=== PATIENT | female | born 1965 | race Caucasian/White ===

== ENCOUNTER 2024-07-20 10:54 | Emergency (ER) | payer OTHER, SELFPAY ==
--- OUTSIDE RECORDS SUMMARY | 2024-07-20 11:14 | XMS_ITS | Clinical Summary ---
Author Organization [facility] [address] Address [address] [place] [address] Phone Care Team Providers Care Production Consultant Name Role Phone Tray Cervantes MD Primary Care Provider [phone] Yaritza Luque MD Unavailable Allergies Active Allergy Reactions Criticality Noted Date Comments Benzonatate Anaphylaxis High Covid-19 (Sars-Cov-2) Vaccine, Ad26 Shortness of breath High 08/23/2021 moderna #2 Egg Hives Medium 06/04/2019 Fluconazole Anaphylaxis,Other (S ee comments) High Blisters in mouth Macadamia Nut Oil Hives Medium 10/06/2017 Other Hives Medium 08/28/2017 Lemon grass Penicillins Hives,Palpitations,R as h Medium Sulfa (Sulfonamide Antibiotics) Anaphylaxis,Hives High Medications psyllium 0.52 gram capsule Take 1 capsule (0.52 g total) by mouth daily Active cranberry 400 mg capsule Take 400 mg by mouth daily. Active ashwagandha root extract,bulk, 2.5 % powder Take 1 capsule by mouth daily Active turmeric root extract 500 mg capsuleIndicati ons:stop 5 days before surgery Take 964 mg by mouth daily. Active naproxen (ANAPROX,ALEVE) 220 mg tabletIndicatio ns:stop 5 days before surgery Take 1 tablet (220 mg total) by mouth daily as needed Rare use for migraines. Active cholecalciferol (VITAMIN D-3) 4,000 unit capsule Take 1 capsule (4,000 Units total) by mouth daily Active UNABLE TO FIND Med Name: mushroom mood support Active thiamine (VITAMIN B1) 100 mg tablet Take 100 mg by mouth daily Active magnesium citrate 100 mg tablet Take 4 tablets by mouth daily Active UNABLE TO FIND Take 1 Dose by mouth 3 (three) times a week Med Name: Probiotic for women, 60 Billion CFU from [employer]. Active cetirizine (ZyrTEC) 10 mg tablet Take 10 mg by mouth daily Active Active Problems Problem Noted Date Diagnosed Date Grade IV hemorrhoids 03/25/2018 Overview (03/25/2018): Added automatically from request for surgery [id number] Assessment & Plan (03/25/2018 4:21 PM COOK MORNING): The procedure of hemorrhoidectomy was discussed at length with the patient along with the post operative period including typical pain and activity to which patient agrees. Seborrheic keratoses 03/05/2018 Overview (03/05/2018): Small 0.5 cm flesh colored plaque, right distal dorsal forearm, probably seborrheic keratosis. Assessment & Plan (03/21/2018 3:25 PM COOK MORNING): She noticed a small plaque on the right dorsal forearm recently. It may have been there for longer than the several days that she noticed it. It is not irritated. It looks like a probable seborrheic keratosis. She is worried about some related conditions, and it could be an early basal cell cancer. We will have her come back in a month for another look. She did not want referral to Dermatology or general surgery for flat excision at this time. Heartburn 08/17/2016 Overview (08/28/2017): Intermittent heart burn depending on what she eats, responds to Papaya pills. Assessment & Plan (03/05/2018 5:13 PM COOK MORNING): Heartburn symptoms are well controlled as long as she avoids certain foods. Continue to monitor. Assessment & Plan (08/28/2017 1:45 PM CDT): As she has approached 51 years of age, she has had more problems with dyspepsia. Certain foods bother her more than others. She gets a little heartburn. Papaya pills seem to help. She also takes an occasional Tums. She has no trouble swallowing. We talked about the types of foods that can make acid reflux worse. Her weight may be a factor. She should not eat within 2 hr of bedtime. We will monitor the situation and try medication as needed, but she prefers to control things with her supplements for now. Other fatigue 08/17/2012 Overview (08/28/2017): Patient suspects it is stress related. Assessment & Plan (12/11/2019 4:26 PM CDT): Energy level seems good. Labs checked a couple of years ago were all unremarkable. Continue to monitor. Assessment & Plan (08/28/2017 1:48 PM CDT): For the past five or six years, she has had a lot of fatigue. She thinks it is related to stress on the job. 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 She has a health monitor, and we went over her sleep habits. She gets five or 6 hr of sleep a night, sometimes more. The distribution of REM sleep and other phases seems fairly good. However, she wakes up feeling unrested. She only scores three on the Riley Sleepiness Scale. We will check some labs to exclude nutritional deficiency and anemia. Otherwise I think treating her fatigue is probably a matter of getting a little more sleep, losing some weight, and eating right. Snores 08/17/2012 Assessment & Plan (08/28/2017 1:48 PM CDT): Her says she snores, but she only scores three on the Riley Sleepiness Scale. The sleep study is probably not warranted at this time. Continue to monitor. Perennial allergic rhinitis 08/17/2009 Overview (12/06/2019): Takes Zyrtec every day. Obesity (BMI 30-39.9) 08/18/2007 Assessment & Plan (12/06/2019 3:42 PM CDT): She is actually under the obese threshold at this point. She has been working on gradual weight loss and has made some progress. Continue efforts. Assessment & Plan (08/28/2017 1:46 PM CDT): She is somewhat obese and realizes she has to lose some weight. We went over basal energy expenditure, allocation of calories, and other factors. We will check some baseline labs for possible metabolic effects of obesity. We will see her back in six months and hopefully see an improvement. Other hemorrhoids 02/18/2000 Overview (03/05/2018): Since of her son. Assessment & Plan (03/05/2018 5:14 PM COOK MORNING): She has had hemorrhoids for nearly 20 years that intermittently prolapse and intermittently bleed. They cause her a moderate amount of discomfort. She had a recent normal colonoscopy. We will refer to General surgery for banding or other treatment of the hemorrhoids. Resolved Problems Problem Noted Date Diagnosed Date Resolved Date Gross hematuria 01/26/2018 12/05/2019 Overview (12/05/2019): Gross hematuria with dysuria, possibly UTI, patient recovered with cranberry supplement. Follow up urinalysis negative for blood or other finding. Assessment & Plan (03/05/2018 5:16 PM COOK MORNING): About six weeks ago, she developed dysuria and gross hematuria. She presumed it was a urine infection so she started taking large doses of cranberry capsules. After a week, symptoms resolved and have not recurred. However, in view of the presence of hematuria, we will check a follow-up urinalysis and proceed accordingly. Encounter for screening colonoscopy 08/29/2017 03/05/2018 Overview (08/29/2017): Added automatically from request for surgery [id number] Immunizations Immunization Administration Dates Next Due Tdap 08/18/2012 Surgical History Surgery Date Site/Laterality Comments DIAGNOSTIC LAPAROSCOPY 02/17/1987 - 02/17/1988 pelvic pain WISDOM TOOTH EXTRACTION 02/17/1986 - 02/16/1987 ENDOMETRIAL ABLATION W/ NOVASURE 02/18/2012 - 02/16/2013 TUBAL LIGATION 02/18/2012 - 02/16/2013 COLONOSCOPY 10/06/2017 Normal, Dr. Guerra, [facility]. FRACTURE SURGERY 02/17/1979 - 02/17/1980 Left fractured arm x 3 [facility] MAMMOGRAPHY 07/30/2019 Bilateral Negative, [facility] PAP SMEAR WITH HPV 06/09/2020 Normal, Amy Matute, [facility]. MAMMOGRAPHY 08/08/2020 Bilateral Negative, [facility]. Medical History Medical History Date Comments Depression Mitral valve prolapse As of las t doctor appointment no evidence of Mitral Valve Prolapse. Dr. Elda Loera Abnormal Pap smear of cervix his tory of intermittently abnormal pap smears; normal biopsies History of genital warts 1988 cryothe rapy; improved 04/14/18 Arm fracture 1979 PONV (postoperative nausea a nd vomiting) Encounter for screening colonoscopy 08/29/2017 Added automatically from request for surgery [id number] Gross hematuria 01/26/2018 Gross hematuria with dysuria, possibly UTI, patient recovered with cranberry supplement. Follow up urinalysis negative for blood or other finding. Chicken pox Non morbid obesity 08/18/2007 Family History Medical History Relation Name Comments Heart attack Father Skin cancer Maternal Grandfather Heart attack Maternal Grandmother Heart disease Maternal Grandmother Stroke Maternal Grandmother Depression Mother Mitral valve prolapse Mother Rheum arthritis Mother Alzheimer's disease Paternal Grandfather Cancer Paternal Grandfather Lung cancer Paternal Grandfather Stroke Paternal Grandmother Diabetes Paternal Great-Grandmother Relation Name Status Comments Father Alive Maternal Grandfather Maternal Grandmother Mother Alive Paternal Grandfather Paternal Grandmother Paternal Great-Grandmother Social History Tobacco Use Types Packs/Day Years Used Date Smoking Tobacco: Former Cigarettes 2 - 2001 Smokeless Tobacco: Never Tobacco Cessation:Counseling Given: Not Answered Comments:Smoking History Packs/day: 2 Packs Alcohol Use Standard Drinks/Week Comments Yes 0 (1 standard drink = 0.6 oz pur e alcohol) socially PHQ-2 Answer Date Recorded PHQ-2 Total Score (If total score is 3 or more points, staff should administer the PHQ-9) 0 12/06/2019 Comments No Sex and Gender Information Value Date Recorded Sex Assigned at Not on file Legal Sex Female 4:23 PM COOK MORNING Gender Identity Not on file Sexual Orientation Not on file Occupation Industry Job Start Date Job End Date Not on file Not on file Not on file Not on file Obstetrics History Para Term AB IAB SAB Ectopic Multiple Livin g Live Births 3 2 2 0 1 1 0 0 0 2 2 Date Outcome GA Total Labor Labor/2nd/3rd Weight Sex Type Anes PTL Anika A1 A5 Name Clin Term Term IAB Last Filed Vital Signs Vital Sign Reading Time Taken Comments Blood Pressure 122/80 09/05/2023 3:20 PM CDT Pulse 73 12/06/2019 2:52 PM CDT Temperature 36.3 C (97.3 F) 12/06/2019 2:52 PM CDT Respiratory Rate 16 12/06/2019 2:52 PM CDT Oxygen Saturation 97% 12/06/2019 2:52 PM CDT Inhaled Oxygen Concentration - - Weight 98 kg (216 lb) 09/05/2023 3:20 PM CDT Height 175.3 cm (5' 9) 09/05/2023 3:20 PM CDT Body Mass Index 31.9 09/05/2023 3:20 PM CDT Plan of Treatment Health Maintenance Due Date Last Done Comments Hepatitis C Screening 1965 Hepatitis B Screening 1984 Zoster Vaccine (1 of 2) 2016 Depression Screening 12/05/2020 12/06/2019, 08/29/19 Cervical Cancer Screening 06/09/20212020, 05/22/2016, 12/24/2012 DTaP/Tdap/Td Vaccine (2 - Td or Tdap) 08/18/2022 08/18/2012 Covid-19 Vaccine ( season) 2023 02/11/2021, 01/14/2021 Regular Well Visit/Exam 18-64 09/04/2024 09/05/2023, 08/30/2022, 08/23/2021, Additional history exists Influenza Vaccine (Season Ended) 2024 Breast Cancer Screening-Mammogram 03/12/2025 03/12/2024, 01/24/2023, 01/03/2022, Additional history exists Colon Cancer Screening-Colonoscopy 10/07/2027 10/06/2017 Colon Cancer Screening-CT Colonography Discontinued 10/06/2017 Colon Cancer Screening-DNA Stool Discontinued 10/06/2017 Colon Cancer Screening-FIT Discontinued 10/06/2017 Colon Cancer Screening-Sigmoidoscopy Discontinued 10/06/2017 Pneumococcal vaccine <65 Aged Out No longer eligible based on patient's age to complete this topic Procedures Procedure Name Priority Date/Time Associated Diagnosis Comments SCREENING MAMMOGRAM BILATERAL W ANDREI Schedule Routine, Read Routine (OP Routine) 03/12/2024 4:03 PM COOK MORNING Encounter for screening mammogram for breast cancer PAP WITH REFLEX TO HIGH RISK HPV Routine 06/09/2020 11:08 AM CDT COLONOSCOPY 10/06/2017 11:23 AM CDT from Last 3 Months or Most Recently Relevant to Health Maintenance Results * Screening Mammogram Bilateral W Andrei (03/12/2024 4:03 PM COOK MORNING) Anatomical Region Laterality Modality Breast Bilateral Mammography 03/12/2024 4:12 PM COOK MORNING Impressions 03/12/2024 4:12 PM COOK MORNING There is no mammographic evidence of malignancy. A 1 year screening mammogram is recommended. BI-RADS: 1 - Negative. The patient has been or will be contacted. The patient will be entered into a reminder system with a target due date of 1 year for her next mammogram. Electronically signed by: Naomy Womack M.D. Narrative 03/12/2024 4:12 PM COOK MORNING EXAMINATION: SCREENING MAMMOGRAM BILATERAL W ANDREI ORDERING HEALTHCARE PROVIDER: YARITZA LUQUE HISTORY: Routine screening mammography. COMPARISON: 01/24/2023, 01/03/2022, 08/08/2020, 07/30/2019 TECHNIQUE: CC and MLO views of the bilateral breasts were obtained with digital technique using breast tomosynthesis with C view. Computer aided detection was utilized. FINDINGS: DENSITY: There are scattered areas of fibroglandular density. BREASTS: There are no suspicious masses, suspicious calcifications, or other suspicious findings in either breast. There has been no suspicious interval change. Yaritza Luque MD IMG MAMMO PROCEDURES Final Result * Pap with reflex to High Risk HPV (06/09/2020 11:08 AM CDT) Pap test 06/09/2020 11:0 8 AM CDT 06/09/2020 11:08 AM CDT Narrative 06/15/2020 1:22 PM CDT [facility] Department of Pathology [address] [place], [place] [id number] Final Report with Addendum Patient Name: CHRIS CHANDLER Address: [address] [place] [address] Gender: F : 1965 (Age: 54) Service: Laboratory Location: Lab Hospital #: [id number] Patient Type: Ref Lab Taken: 06/09/2020 Received: 06/09/2020 Accessioned:: 06/12/2020 Reported: 06/15/2020 Physician(s): KORI Sharpe WHNP Diagnosis: Source of Specimen: Imaged Thinprep Pap Test plus HPV - Server Service Assistant Cytologic Material Specimen Adequacy: - Satisfactory for evaluation; endocervical/transformation zone component present General Category: - Negative for intraepithelial lesion or malignancy Interpretation/Results: - Reactive/reparative cell changes CIPRIANO Lutz(ASCP) Norma Jones M.D. Report Electronically Reviewed and Signed Out By Norma Jones M.D. 06/15/2020 13:22:04 Addenda: HPV Test Interpretation NEGATIVE for types 16, 18, 31, 33, 35, 39, 45, 51, 52, 56, 58, 59, 66 and 68. Test performed utilizing Gen-Probe Aptima assay. CIPRIANO Guerrero(ASCP) Report Electronically Reviewed and Signed Out By KIMMY GuerreroASCP) 06/12/2020 14:07:57 Specimen(s) Received: A: Imaged Thinprep Pap Test plus HPV - Server Service Assistant Cytologic Material Clinical History: Menstrual History: Ablation Previous Negative Pap: 2019 The Pap test is a screening test used to aid in the detection of cervical cancer and its precursors. It should not be the sole means by which malignant and premalignant lesions are diagnosed. Both false negative and false positive results may occur. It also has poor sensitivity for the detection of endometrial lesions and should not be used to evaluate suspected endometrial abnormalities. For these reasons it is most important to obtain Pap tests at regular intervals. The performance characteristics of some immunohistochemical stains, fluorescence in-situ hybridization tests and immunophenotyping by flow cytometry cited in this report (if any) were determined by the Surgical Pathology Department at [facility] as part of an ongoing automotive quality manager program and in compliance with federally mandated regulations drawn from the Clinical Laboratory Improvement Act of 1988 (CLIA '88). Some of these tests rely on the use of analyte specific reagents and are subject to specific labeling requirements by the US Food and Drug Administration. Such diagnostic tests may only be performed in a facility that is certified by the Department of Health and Human Services as a high complexity laboratory under CLIA '88. The FDA has determined that such clearance or approval is not necessary. This test is used for clinical purposes. It should not be regarded as investigational or for research. Nevertheless, federal rules concerning the medical use of analyte specific reagents require that the following disclaimer be attached to the report: This test was developed and its performance characteristics determined by the Surgical Pathology Department [facility]. It has not been cleared or approved by the U. S. Food and Drug Administration. Amy Matute NP LAB CYTOLOGY ORDERABLES F inal Result * COLONOSCOPY (10/06/2017 11:23 AM CDT) Anatomical Region Laterality Modality Other Narrative Procedure Note Karthik Guerra MD - 10/06/2017 11:23 AM CDT [facility] Patient Name: Chris Chandler Procedure Date: 10/06/2017 11:23 AM Date of : 1965 Admit Type: Outpatient Age: 51 Gender: Female Attending MD: Karthik Guerra M.D. Room: [facility] Note Status: Finalized Procedure: Colonoscopy Indications: This is the patient's first colonoscopy, Screeningfor colorectal malignant neoplasm Referring MD: Tray Cervantes MD Providers: Karthik Guerra M.D. Impression: - The entire examined colon is normal. - No specimens collected. Recommendation: - Discharge patient to home. - Resume previous diet. - Continue present medications. - Repeat colonoscopy in 10 years for screeningpurposes. - Return to primary care physician as previously scheduled. Medicines: Propofol per Anesthesia Complications: No immediate complications. Estimated Blood Loss: Estimated blood loss: none. Procedure: The benefits, risks and alternatives of theprocedure and sedation were discussed and informed consent was obtained. All questions were answered. Please referto the signed informed consent document in the medical record. The scope was passed under direct vision.The Colonoscope [id number] was introducedthrough the anus and advanced to the the cecum, identifiedby appendiceal orifice and ileocecal valve. The colonoscopy was performed without difficulty. The patient tolerated the procedure well. The quality of the bowel preparation was good. Findings: The perianal and digital rectal examinations were normal. The colon (entire examined portion) appeared normal. Electronically signed by Karthik Guerra M.D. Karthik Guerra M.D. 10/06/2017 11:48:48 AM Number of Addenda: 0 Note Initiated On: 10/06/2017 11:23 AM Procedure Code(s): --- Professional --- G0121, Colorectal cancer screening; colonoscopy on individual not meeting criteria for high risk Diagnosis Code(s): --- Professional --- Z12.11, Encounter for screening for malignant neoplasm of colon CPT copyright 2017 [employer]. All rights reserved. The codes documented in this report are preliminary and upon library clerical assistant reviewmay be revised to meet current compliance requirements. Recognized by the [employer] for promoting quality in endoscopy Karthik Guerra MD ENDOSCOPY PROCEDURES Final Re sult from Last 3 Months or Most Recently Relevant to Health Maintenance Insurance [facility] CHOICE PLUS [facility] HMO/PPO Address: [facility] [address] [place] [address] [facility]LY [facility] OPEN ACCESS Advance Directives For more information, please contact: [phone] * Full Code (Latest Code Status on File) Date Activated Date Inactivated Comments 10/06/2017 9:52 AM 10/06/2017 2:57 PM Care Teams Production Consultant Relationship Specialty Start Date End Date Tray Cervantes MD [address] [place] [address] PCP - General Infectious Diseases 08/29/17 Yaritza Luque MD [address] [place] [address] Evaluation Specialist Obstetrics and Gynecology 08/30/22
--- OUTSIDE RECORDS SUMMARY | 2024-07-20 11:14 | XMS_ITS | Encounter Summary ---
Author Organization [facility] Address [address] [place] [address] Phone Care Team Providers Care Promotor Group Ticket Sales Name Role Phone No, Physician Primary Care Provider [phone] Tray Cervantes MD Primary Care Provider [phone] Meera Crawford MD Unavailable [phone] Encounter Details Date Type Department Care Team (Late st Contact Info) Description 05/23/2017 Orders Only [facility] ProviderJai MD [address] [place] [address] Social History Tobacco Use Types Packs/Day Years Used Date Smoking Tobacco: Former Cigarettes 2 10 1 990 - 2000 Smokeless Tobacco: Never Comments:Smoking History Pac ks/day: 2 Packs Alcohol Use Standard Drinks/Week Comments Yes 0 (1 standard drink = 0.6 oz pur e alcohol) Comments No Sex and Gender Information Value Date Recorded Sex Assigned at Not on file Legal Sex Female 4:23 PM INVOICE CHECKER Gender Identity Not on file Sexual Orientation Not on file 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 us Historical Provider LAB CYTOLOGY ORDERABLES F inal Result documented in this encounter Visit Diagnoses Not on filedocumented in this encounter Care Teams Promotor Group Ticket Sales Relationship Specialty Start Date End Date No, Physician PCP - General 05/23/17 08/28/17 Tray Cervantes MD [address] [id number] PCP - General Infectious Diseases 08/29/17 Meera Crawford MD [address] [address] Correctional Probation Officer Obstetrics and Gynecology 08/30/22 documented as of this encounter
--- OUTSIDE RECORDS SUMMARY | 2024-07-20 11:14 | XMS_ITS | Clinical Summary ---
Author Organization [facility] Address [address] Kim: Epic Prelude ADT [place] [address] Care Team Providers Care Joist Setter Name Role Phone Unavailable Primary Care Provider Unavailabl e Social History Tobacco Use Types Packs/Day Years Used Date Smoking Tobacco: Never Assessed Comments Unknown Sex and Gender Information Value Date Recorded Sex Assigned at Not on file Legal Sex Female 3:37 AM TOOL ADJUSTER Gender Identity Not on file Sexual Orientation Not on file Plan of Treatment Health Maintenance Due Date Last Done Comments DTAP/TDAP/TD VACCINES (1 - Tdap) 1985 HEPATITIS B VACCINES (1 of 3 - 19+ 3-dose series) 12/18 HPV/Cotest (21-29) 12/28/1987 CERVICAL CANCER SCREENING 1996 HPV/Cotest (30-65) 1996 PAP SMEAR 1996 BREAST CANCER SCREENING 2006 COLORECTAL SCREENING 12/28/2011 Colorectal Cancer Screening 12/28/2011 FIT-DNA Q 3 years 12/28/2011 FIT/FOBT Q 1 year 12/28/2011 Flex Sig/CT Colonography Q 5 years 12/28/2011 ZOSTER VACCINE (1 of 2) 2016 INFLUENZA VACCINE (#1) 2023
--- OUTSIDE RECORDS SUMMARY | 2024-07-20 11:14 | XMS_ITS | Encounter Summary ---
Author Organization [facility] Address [address] Kim: [place] [address] Care Team Providers Care Train Control Electronic Technician Name Role Phone Unavailable Primary Care Provider Unavailabl e Encounter Details Date Type Department Care Team (Late st Contact Info) Description 11/12/1988 Outpatient Historical Antoni Sparks MD [address] [place] [id number] Social History Tobacco Use Types Packs/Day Years Used Date Smoking Tobacco: Never Assessed Comments Unknown Sex and Gender Information Value Date Recorded Sex Assigned at Not on file Legal Sex Female 3:37 AM STUFFER Gender Identity Not on file Sexual Orientation Not on file documented as of this encounter Plan of Treatment Not on file documented as of this encounter Visit Diagnoses Not on filedocumented in this encounter
--- OUTSIDE RECORDS SUMMARY | 2024-07-20 11:14 | XMS_ITS | Referral Summary ---
Author Organization [facility] [address] Address [address] [place] [address] Phone Care Team Providers Care Biofuels Operations Manager Name Role Phone Tray Cervantes MD Primary Care Provider [phone] Yaritza Luque MD Unavailable Allergies Active Allergy [...] (03/25/2018): Added automatically from request for surgery [id number] Assessment & Plan (03/25/2018 4:21 PM RN ADMISSION): The procedure of hemorrhoidectomy was discussed at length with the patient along with the post operative period including typical pain and activity to which patient agrees. Seborrheic keratoses 03/05/2018 Overview (03/05/2018): Small 0.5 cm flesh colored plaque, right distal dorsal forearm, probably seborrheic keratosis. Assessment & Plan (03/21/2018 3:25 PM RN ADMISSION): She noticed a small plaque on the [...] pills. Assessment & Plan (03/05/2018 5:13 PM RN ADMISSION): Heartburn symptoms are well controlled as long [...] unrested. She only scores three on the [place] Sleepiness Scale. We will check some labs to exclude nutritional deficiency and anemia. Otherwise I think treating her fatigue is probably a matter of getting a little more sleep, losing some weight, and eating right. Snores 08/17/2012 Assessment & Plan (08/28/2017 1:48 PM CDT): Her says she snores, but she only scores three on the [place] Sleepiness Scale. The sleep study is probably [...] son. Assessment & Plan (03/05/2018 5:14 PM RN ADMISSION): She has had hemorrhoids for nearly 20 [...] finding. Assessment & Plan (03/05/2018 5:16 PM RN ADMISSION): About six weeks ago, she developed dysuria [...] (08/29/2017): Added automatically from request for surgery [id number] Immunizations Immunization Administration Dates Next Due Tdap 08/18/2012 Social History Tobacco Use Types Packs/Day Years Used Date Smoking Tobacco: Former Cigarettes 2 10 1 992 - 2002 Smokeless Tobacco: Never Tobacco Cessation:Counseling Given: Not [...] on file Legal Sex Female 4:23 PM RN ADMISSION Gender Identity Not on file Sexual Orientation Not on file Occupation Industry Job Start Date Job End Date Not on file Not on file Not on file Not on file Last Filed Vital Signs Vital Sign Reading [...] 09/05/2023 3:20 PM CDT Plan of Treatment Not on file Procedures Procedure Name Priority Date/Time Associated Diagnosis Comments SCREENING MAMMOGRAM BILATERAL W ANDREI Schedule Routine, Read Routine (OP Routine) 03/12/2024 4:03 PM RN ADMISSION Encounter for screening mammogram for breast cancer PAP WITH REFLEX TO HIGH RISK HPV Routine 06/09/2020 11:08 AM CDT COLONOSCOPY 10/06/2017 11:23 AM CDT from Last 3 Months or Most Recently Relevant to Health Maintenance Results * Screening Mammogram Bilateral W Andrei (03/12/2024 4:03 PM RN ADMISSION) Anatomical Region Laterality Modality Breast Bilateral Mammography 03/12/2024 4:12 PM RN ADMISSION Impressions 03/12/2024 4:12 PM RN ADMISSION There is no mammographic evidence of malignancy. A 1 year screening mammogram is recommended. BI-RADS: 1 - Negative. The patient has been or will be contacted. The patient will be entered into a reminder system with a target due date of 1 year for her next mammogram. Electronically signed by: Naomy Womack M.D. Narrative 03/12/2024 4:12 PM RN ADMISSION EXAMINATION: SCREENING MAMMOGRAM BILATERAL W ANDREI ORDERING [...] There has been no suspicious interval change. us Yaritza Luque MD IMG MAMMO PROCEDURES Final Result * Pap with reflex to High Risk HPV (06/09/2020 11:08 AM CDT) Pap test 06/09/2020 11:0 8 AM CDT 06/09/2020 11:08 AM CDT Narrative 06/15/2020 1:22 PM CDT [facility] Department of Pathology [address] [place], [place] [id number] Final Report with Addendum Patient Name: CHRIS CHANDLER Address: [facility] [address], [place] [address] Gender: F : 1965 (Age: 54) Service: Laboratory Location: Lab [facility] #: [id number] Patient Type: Ref Lab Taken: 06/09/2020 Received: 06/09/2020 Accessioned:: 06/12/2020 Reported: 06/15/2020 Physician(s): KORI Sharpe WHNP Diagnosis: Source of Specimen: Imaged Thinprep Pap Test plus HPV - Firer Retort Cytologic Material Specimen Adequacy: - Satisfactory for [...] Test performed utilizing Gen-Probe Aptima assay. CIPRIANO Guerrero(ASC) Report Electronically Reviewed and Signed Out By KIMMY GuerreroASC) 06/12/2020 14:07:57 Specimen(s) Received: A: Imaged Thinprep Pap Test plus HPV - Firer Retort Cytologic Material Clinical History: Menstrual History: Ablation [...] determined by the Surgical Pathology Department at [facility] as part of an ongoing quality improvement manager program and in compliance with federally [...] characteristics determined by the Surgical Pathology Department [facility]. It has not been cleared or approved by the U. S. Food and Drug Administration. us Amy Matute [employer] LAB CYTOLOGY ORDERABLES F inal Result * COLONOSCOPY (10/06/2017 11:23 AM CDT) Anatomical Region Laterality Modality Other Narrative Procedure Note Karthik Guerra MD - 10/06/2017 11:23 AM CDT [facility] Patient Name: Chris Chandler Procedure Date: 10/06/2017 11:23 AM Date of : 1965 Admit Type: Outpatient Age: 51 Gender: Female Attending MD: Karthik Guerra M.D. Room: [facility] Note Status: Finalized Procedure: Colonoscopy [...] scope was passed under direct vision.The Colonoscope [id number] was introducedthrough the anus and advanced to [...] malignant neoplasm of colon CPT copyright 2017 [employer]. All rights reserved. The codes documented in this report are preliminary and upon medical record coder reviewmay be revised to meet current compliance requirements. Recognized by the [place] [employer] for promoting quality in endoscopy Karthik Guerra MD ENDOSCOPY PROCEDURES Final Re sult from Last 3 Months or Most Recently Relevant to Health Maintenance Insurance [facility] CHOICE PLUS [facility] HMO/PPO Address: [address] [address] [place] [address] [facility] H[facility]/PPO Address: [address] [place] [address] Advance Directives For more information, please contact: [phone] * Full Code (Latest Code Status on File) Date Activated Date Inactivated Comments 10/06/2017 9:52 AM 10/06/2017 2:57 PM Care Teams Biofuels Operations Manager Relationship Specialty Start Date End Date Tray Cervantes MD [address] [place] [address] PCP - General Infectious Diseases 08/29/17 Yaritza Luque MD [address] [id number] [employer] Vasc Tech Obstetrics and Gynecology 08/30/22
[2024-07-20 11:19] VITALS: BP 118/78; PULSE 75; RESP 18; TEMP 36.6; O2SAT 100
[2024-07-20 11:54] LABS: EDUAAPPEAR Clear; EDUABILI Negative (Negative); EDUABLOOD Negative (Negative); EDUACOLOR1 Light/Pale; EDUAGLUCOSE Negative (Negative); EDUAKETONE Negative (Negative); EDUALEUKO Trace (Negative); EDUANITRATE Negative (Negative); EDUAPH 6.5; EDUAPROTEIN Negative (Negative); EDUASPGRAVITY 1.015; EDUAUROBILI 0.2
--- NOTE | 2024-07-20 12:05 | ED_ITS ---
HPI - General Adult General Chief complaint: Urogenital-Female Stated complaint: Urinary Problem Source: patient Mode of arrival: ambulatory Limitations: no limitations History of Present Illness HPI narrative: Patient presents for evaluation of urinary symptoms. She states she increased protein in her diet and took a home urine dipstick about eighteen days ago. She was experiencing some urinary frequency at that time. She repeated the test today and it was positive for leukocytes. She reports some discomfort when urinating and persistent urinary frequency. She denies any fever, chills, nausea, vomiting, hematuria, vaginal bleeding or discharge. She reports a dull pain rates 2/10 in left flank with intermittent sharp pain with a rating of 5/10. Related Data Allergies Allergy/AdvReac Type Severity Reaction Status Date / Time fluconazole (From Diflucan) Allergy Severe blisters Verified 07/20/24 11:17 Penicillins Allergy Severe Hives Verified 07/20/24 11:17 Milk Containing Products Allergy Mild intolerance Verified 07/20/24 11:17 (Dairy) macadamian nut Allergy Severe Hives Uncoded 07/20/24 11:17 lemon grass Allergy Intermediate other Uncoded 07/20/24 11:17 Review of Systems Review of Systems: CONSTITUTIONAL: Denies fever, chills, or sweats. EYES: Denies visual changes, redness, or discharge. ENT: Denies rhinorrhea, congestion, sore throat, or otalgia. CARDIOVASCULAR: Denies chest pain, palpitations, or edema. RESPIRATORY: Denies cough or dyspnea. GASTROINTESTINAL: Denies abdominal pain, nausea, vomiting, or diarrhea. GENITOURINARY: Reports urinary frequency and discomfort with urinating. Reports left flank pain. Denies hematuria, vaginal bleeding or discharge. SKIN: Denies rash or itching. MUSCULOSKELETAL: Denies back pain, joint pain, or myalgia. NEUROLOGIC: Denies headache, numbness, dizziness, or weakness. PSYCHIATRIC: Denies anxiety or depression. [facility] Past Medical History Medical History No pertinent past medical history Surgical History Surgical History History of surgery on arm Family History Family History Mother Family history non-contributory Social History Social History Smoking status: Never smoker Substance use: never Living arrangements: with family Gender identity (if verbalized by the patient): Female Sexual Orientation (if Verbalized by the Patient): Straight or Heterosexual Spiritual care concerns: No Exam Narrative: GENERAL: Well-appearing, well-nourished, and in no acute distress. HEAD: Normocephalic, atraumatic. EYES: PERRLA and EOMI. ENT: Nares clear, no rhinorrhea or epistaxis. Mucous membranes moist. Oropharynx without tonsillar hypertrophy exudate or other lesions. Bilateral TMs pearly cormier nonbulging NECK: Supple. No adenopathy or masses. No carotid bruits or JVD CHEST: Clear to auscultation. No respiratory distress. No wheezes rales or rhonchi HEART: Regular rate and rhythm. No murmur heard. Normal peripheral pulses. ABDOMEN: Soft, nontender, nondistended, normal active bowel sounds. EXTREMITIES: Normal range of motion. No edema. BACK: No CVA tenderness SKIN: Warm, dry, no rash. NEURO: No focal deficits. Alert and oriented x3. PSYCH: Normal mood and affect. Course Course Emergency Course: This is a 58-year-old female who presented for evaluation of urinary symptoms. She has leukocytes in her urine today. Will treat with Bactrim. Send urine for culture. She does not have CVA tenderness and is in no apparent distress so suggest obstructing stone. However, she was advised that if her flank pain persists or worsens, she should go to the ER. Otherwise she should follow up with PCP. Pt in agreement with plan of care. Level of Care: Express Care Visit Vital Signs Vital signs: Vital Signs Temperature 36.6 C 07/20/24 11:19 Pulse Rate 75 07/20/24 11:19 Respiratory Rate 18 07/20/24 11:19 Blood Pressure 118/78 07/20/24 11:19 Pulse Oximetry 100 07/20/24 11:19 Oxygen Delivery Room Air 07/20/24 11:19 Temperature 36.6 C 07/20/24 11:19 Pulse Rate 75 07/20/24 11:19 Respiratory Rate 18 07/20/24 11:19 Blood Pressure 118/78 07/20/24 11:19 Pulse Oximetry 100 07/20/24 11:19 Oxygen Delivery Room Air 07/20/24 11:19 Medical Decision Making Vital Signs Vital Signs: Vital Signs Temperature 36.6 C 07/20/24 11:19 Pulse Rate 75 07/20/24 11:19 Respiratory Rate 18 07/20/24 11:19 Blood Pressure 118/78 07/20/24 11:19 Pulse Oximetry 100 07/20/24 11:19 Oxygen Delivery Room Air 07/20/24 11:19 Temperature 36.6 C 07/20/24 11:19 Pulse Rate 75 07/20/24 11:19 Respiratory Rate 18 07/20/24 11:19 Blood Pressure 118/78 07/20/24 11:19 Pulse Oximetry 100 07/20/24 11:19 Oxygen Delivery Room Air 07/20/24 11:19 Lab Data Labs: Lab Results 07/20/24 Range/Units 11:49 POC Urine Color Light/pale POC Urine Clarity Clear POC Urine pH 6.5 POC Ur Specif [place] 1.015 POC Urine Protein Negative (Negative) POC Ur Glucose (UA) Negative (Negative) POC Urine Ketones Negative (Negative) POC Urine Blood Negative (Negative) POC Urine Nitrite Negative (Negative) POC Urine Bilirubin Negative (Negative) POC Urine Urobilinogen 0.2 POC U Leukocyte Esteras Trace (Negative) Discharge Plan Discharge Clinical Impression: UTI (urinary tract infection) Patient Disposition: Home Condition: Stable Instructions: Antibiotic Form, Urinary Tract Infection in Women (DC) Patient Language: Upper Sorbian Prescriptions: New sulfamethoxazole-trimethoprim [Bactrim DS] 800-160 mg tablet 1 tablet PO Q12H Qty: 14 0RF Follow-up/Referrals: Helen,Tray Young MD [Primary Care Provider] - Time of Disposition: 11:51
== END 2024-07-20 11:55 | disposition home or self-care (01) ==
PROVIDERS: Emergency Provider Nurse Practitioner; PCP Internal Medicine Infectious Disease
DX: N39.0 Urinary tract infection, site not specified (principal)
CPT/HCPCS: 81003; 87086; 99203; G0463